=== PATIENT | female | born 1990 | race American Indian/Alaskan Native ===

== ENCOUNTER 2017-05-21 15:30 | Emergency (ER) | payer SELFPAY ==
[2017-05-21 16:01] VITALS: BP 113/71
[2017-05-21] MEDS ORDERED: XYLOCAINE 2%/ EPI 1:200,000 INFILTRATI ONE ×2 (20:47→20:48)
--- NOTE | 2017-05-21 21:10 | Emergency Department Report ---
Entered by PAULO RIVERO, acting as scribe for CHICHO MORENO PA. - General Chief complaint: Skin/Abscess/Foreign Body Stated complaint: PAIN TO BUTTOCKS Time Seen by Provider: 05/21/17 20:22 Source: patient Mode of arrival: Ambulatory Limitations: No Limitations - History of Present Illness Initial comments: 26 y/o female presents to the ED c/o abscess to right buttock x 2 days. Associated symptoms include pain but denies fever, chills, nausea and vomiting. Pain is described as 5/10 on a severity scale. Patient uses tobacco products. No alleviating factors but aggravated with sitting down and laying down. NKDA. No significant PMHx or PSHx. MD complaint: abscess/boil Onset/Timin -: days(s) Location: buttocks Severity: moderate Severity scale (0 -10): 5 Consistency: constant Improves with: none Worsens with: other (sitting down/laying down) Context: none Associated symptoms: denies other symptoms Treatments Prior to Arrival: NSAID - Related Data Previous Rx's Medication Instructions Recorded Last Taken Type Naproxen [Naprosyn TAB] 500 mg PO BID PRN #20 tablet 05/21/17 Unknown Rx Sulfamethoxazole/Trimethoprim 1 each PO BID #14 tablet 05/21/17 Unknown Rx [Bactrim DS TAB] Allergies Allergy/AdvReac Type Severity Reaction Status Date / Time No Known Allergies Allergy Verified 05/21/17 20:47 Abscess Boil HPI - HPI Chief Complaint: Skin/Abscess/Foreign Body Stated Complaint: PAIN TO BUTTOCKS Time Seen by Provider: 05/21/17 20:22 Home Medications: Previous Rx's Medication Instructions Recorded Last Taken Type Naproxen [Naprosyn TAB] 500 mg PO BID PRN #20 tablet 05/21/17 Unknown Rx Sulfamethoxazole/Trimethoprim 1 each PO BID #14 tablet 05/21/17 Unknown Rx [Bactrim DS TAB] Allergies/Adverse Reactions: Allergies Allergy/AdvReac Type Severity Reaction Status Date / Time No Known Allergies Allergy Verified 05/21/17 20:47 ED Review of Systems Comment: All other systems reviewed and negative Constitutional: denies: chills, fever Gastrointestinal: denies: nausea, vomiting Skin: other (abscess to right buttock) ED Past Medical Hx - Past Medical History Previous Medical History?: No - Surgical History Past Surgical History?: No - Social History Smoking Status: Never Smoker Substance Use Type: None - Medications Home Medications: Home Medications Medication Instructions Recorded Confirmed Last Taken Type Naproxen [Naprosyn TAB] 500 mg PO BID PRN #20 tablet 05/21/17 Unknown Rx Sulfamethoxazole/Trimethoprim 1 each PO BID #14 tablet 05/21/17 Unknown Rx [Bactrim DS TAB] ED Physical Exam - General Limitations: No Limitations General appearance: alert, in no apparent distress - Head Head exam: Present: atraumatic, normocephalic, normal inspection - Eye Eye exam: Present: normal appearance, PERRL, EOMI. Absent: scleral icterus, conjunctival injection, nystagmus, periorbital swelling, periorbital tenderness Pupils: Present: normal accommodation - ENT ENT exam: Present: normal exam, normal orophraynx, mucous membranes moist, TM's normal bilaterally, normal external ear exam - Neck Neck exam: Present: normal inspection, full ROM. Absent: tenderness, meningismus, lymphadenopathy, thyromegaly - Respiratory Respiratory exam: Present: normal lung sounds bilaterally. Absent: respiratory distress, wheezes, rales, rhonchi, stridor, chest wall tenderness, accessory muscle use, decreased breath sounds, prolonged expiratory - Cardiovascular Cardiovascular Exam: Present: regular rate, normal rhythm, normal heart sounds. Absent: bradycardia, tachycardia, irregular rhythm, systolic murmur, diastolic murmur, rubs, gallop - GI/Abdominal GI/Abdominal exam: Present: soft, normal bowel sounds. Absent: distended, tenderness, guarding, rebound, rigid, diminished bowel sounds - Extremities Exam Extremities exam: Present: normal inspection, full ROM, normal capillary refill. Absent: tenderness, pedal edema, joint swelling, calf tenderness - Back Exam Back exam: Present: normal inspection, full ROM. Absent: tenderness, CVA tenderness (R), CVA tenderness (L), muscle spasm, paraspinal tenderness, vertebral tenderness, rash noted - Neurological Exam Neurological exam: Present: alert, oriented X3, CN II-XII intact, normal gait - Psychiatric Psychiatric exam: Present: normal affect, normal mood - Skin Skin exam: Present: other (abscess to right buttock approximately 4 cm in diameter) - Other Other exam information: Angella Rivero present during exam ED Course Vital Signs 05/21/17 15:58 Temperature 98.4 F Pulse Rate 91 H Respiratory 16 Rate Blood Pressure 113/71 O2 Sat by Pulse 99 Oximetry - I & D Right Buttocks Type of Procedure: Simple Site: right buttock gluteal cleft Blade Size: 11 I & D Procedure: betadine prep, gauze wick placed (approximately 4 inches of 1 inch of gauze) Progress: Area infiltrated with lidocaine good anesthesia achieved, 1 cm vertical stab incision made, moderate amount of purulent drainage. Iodoform gauze placed into the wound. ED Medical Decision Making - Medical Decision Making A/P: Right gluteal abscess 1-incised and drained, ~4 mls of pus 2-Bactrim twice a day 1 week 3-patient instructed to remove iodoform gauze in 12-16 hours 4-to experience significant relief of pain with drainage of abscess ED Disposition Clinical Impression: Abscess of buttock, right Disposition: DC-01 TO HOME OR SELFCARE Is pt being admited?: No Does the pt Need Aspirin: No Condition: Stable Instructions: Abscess (ED), Abscess Incision and Drainage (ED) Prescriptions: Naproxen [Naprosyn TAB] 500 mg PO BID PRN #20 tablet PRN Reason: Pain Sulfamethoxazole/Trimethoprim [Bactrim DS TAB] 1 each PO BID #14 tablet Referrals: [facility] [Outside] - 3-5 Days [facility] [Outside] - 3-5 Days Forms: Work/School Release Form(ED) Time of Disposition: 21:08 This documentation as recorded by the MAT joya ELIZABETH,accurately reflects the service I personally performed and the decisions made by TIFFANIE arreola RICHARD J, PA.
== END 2017-05-21 21:20 | disposition home or self-care (01) ==
LOC: ED 15:30
DX: L02.31 Cutaneous abscess of buttock (principal)
CPT/HCPCS: 99282

== ENCOUNTER 2018-12-14 19:55 | Emergency (ER) | payer OTHER ==
--- NOTE | 2018-12-14 20:08 | Emergency Department Report ---
Blank Doc - Documentation Documentation: This is a 28-year-old female that presents with buttock abscess. This initial assessment/diagnostic orders/clinical plan/treatment(s) is/are subject to change based on patient's health status, clinical progression and re- assessment by fellow clinical providers in the ED. Further treatment and workup at subsequent clinical providers discretion. Patient/guardians urged not to elope from the ED as their condition may be serious if not clinically assessed and managed. Initial orders include: 1- Patient sent to [facility] for further evaluation and treatment
[2018-12-14 20:11] VITALS: BP 119/85
--- NOTE | 2018-12-15 01:10 | Emergency Department Report ---
ED General Adult HPI - General Chief complaint: Skin/Abscess/Foreign Body Stated complaint: ABCESS Time Seen by Provider: 12/14/18 20:07 Source: patient Mode of arrival: Ambulatory Limitations: No Limitations - History of Present Illness Initial comments: This is a 28-year-old female that presents with buttock abscess. Onset/Timin -: days(s) Location: buttocks Radiation: non-radiation Severity scale (0 -10): 10 Quality: burning (itching) Consistency: intermittent Improves with: none Worsens with: movement (palpation) - Related Data Previous Rx's Medication Instructions Recorded Last Taken Type Naproxen [Naprosyn TAB] 500 mg PO BID PRN #20 tablet 05/21/17 Unknown Rx Sulfamethoxazole/Trimethoprim 1 each PO BID #14 tablet 05/21/17 Unknown Rx [Bactrim DS TAB] Clindamycin [Clindamycin CAP] 300 mg PO Q8H 10 Days #30 cap 12/15/18 Unknown Rx traMADol [Ultram] 50 mg PO Q6HR PRN #12 tablet 12/15/18 Unknown Rx Allergies Allergy/AdvReac Type Severity Reaction Status Date / Time No Known Allergies Allergy Verified 05/21/17 20:47 ED Review of Systems ROS: Stated complaint: ABCESS Other details as noted in HPI Constitutional: denies: chills, fever Eyes: denies: eye pain, eye discharge, vision change ENT: denies: ear pain, throat pain Respiratory: denies: cough, shortness of breath, wheezing Cardiovascular: denies: chest pain, palpitations Endocrine: no symptoms reported Gastrointestinal: denies: abdominal pain, nausea, diarrhea Genitourinary: denies: urgency, dysuria, discharge Musculoskeletal: denies: back pain, joint swelling, arthralgia Skin: denies: rash, lesions Neurological: denies: headache, weakness, paresthesias Psychiatric: denies: anxiety, depression Hematological/Lymphatic: denies: easy bleeding, easy bruising ED Past Medical Hx - Past Medical History Previous Medical History?: No - Surgical History Past Surgical History?: No - Social History Smoking Status: Never Smoker Substance Use Type: None - Medications Home Medications: Home Medications Medication Instructions Recorded Confirmed Last Taken Type Naproxen [Naprosyn TAB] 500 mg PO BID PRN #20 tablet 05/21/17 Unknown Rx Sulfamethoxazole/Trimethoprim 1 each PO BID #14 tablet 05/21/17 Unknown Rx [Bactrim DS TAB] Clindamycin [Clindamycin CAP] 300 mg PO Q8H 10 Days #30 cap 12/15/18 Unknown Rx traMADol [Ultram] 50 mg PO Q6HR PRN #12 tablet 12/15/18 Unknown Rx ED Physical Exam - General Limitations: No Limitations General appearance: alert, in no apparent distress - Head Head exam: Present: atraumatic, normocephalic - Eye Eye exam: Present: normal appearance, PERRL, EOMI - ENT ENT exam: Present: mucous membranes moist - Neck Neck exam: Present: normal inspection - Respiratory Respiratory exam: Present: normal lung sounds bilaterally. Absent: respiratory distress - Cardiovascular Cardiovascular Exam: Present: regular rate, normal rhythm. Absent: systolic murmur, diastolic murmur, rubs, gallop - GI/Abdominal GI/Abdominal exam: Present: soft, normal bowel sounds - Rectal Rectal exam: Present: normal inspection, tenderness (right buttocks tenderness no focal abscess no fluctuant no drainage no erythema ) - Extremities Exam Extremities exam: Present: normal inspection - Back Exam Back exam: Present: normal inspection, full ROM. Absent: tenderness, CVA tenderness (R), CVA tenderness (L), rash noted - Neurological Exam Neurological exam: Present: alert, oriented X3, CN II-XII intact, normal gait, reflexes normal - Psychiatric Psychiatric exam: Present: normal affect, normal mood - Skin Skin exam: Present: warm, dry, intact, normal color. Absent: rash, erythema, ecchymosis ED Course Vital Signs 12/14/18 12/14/18 20:02 20:08 Temperature 98.6 F 98.6 F Pulse Rate 119 H 101 H Respiratory 20 16 Rate Blood Pressure 119/85 119/85 O2 Sat by Pulse 98 98 Oximetry ED Medical Decision Making - Medical Decision Making no focal abscess noted on exam , mild pain to old abscess site, attempted needle aspiration no drainage, there is mild surround erythema more consistant with cellulitis, plan clindamycin po x 10 days ultram prn pain follow up general if persists. return to ed if symptoms worsen for general surgery consult . pt verbalized agreement and understanding of same, pt dc 'd to home in stable condition at this time. Critical care attestation.: If time is entered above; I have spent that time in minutes in the direct care of this critically ill patient, excluding procedure time. ED Disposition Clinical Impression: Cellulitis of buttock, right Disposition: DC-01 TO HOME OR SELFCARE Is pt being admited?: No Does the pt Need Aspirin: No Condition: Stable Instructions: Cellulitis (ED) Prescriptions: Clindamycin [Clindamycin CAP] 300 mg PO Q8H 10 Days #30 cap traMADol [Ultram] 50 mg PO Q6HR PRN #12 tablet PRN Reason: Pain Referrals: LIANA FOWLER MD [Staff Physician] - 3-5 Days Forms: Work/School Release Form(ED) Time of Disposition: 01:15
== END 2018-12-15 01:25 | disposition home or self-care (01) ==
LOC: ED 19:55
DX: L03.317 Cellulitis of buttock (principal)